=== PATIENT | male | born 1995 | race Caucasian/White ===

== ENCOUNTER 2017-08-28 22:31 | Emergency (ER) | payer OTHER ==
[~2017-08-28] VITALS: Ht 177.8 cm; Wt 110.2 kg
[~2017-08-28 22:31] MED LIST: ALLEGRA180 MG PO; CEPHALEXIN500 MG PO
--- NOTE | 2017-08-28 23:51 | ED GENERAL ADULT ---
History of Present Illness General Chief Complaint: General Adult Stated Complaint: MULTIPLE COMPLIANTS Source: patient, family Exam Limitations: no limitations Vital Signs & Intake/Output Vital Signs & Intake/Output Vital Signs Date Time Temp Pulse Resp B/P B/P Pulse O2 O2 Flow FiO2 Mean Ox Delivery Rate 08/29 0050 99 08/29 0015 100.4 08/28 2239 101.9 114 18 99 Room Air ED Intake and Output 08/29 0000 08/28 1200 Intake Total Output Total Balance Patient 243 lb Weight Weight Reported by Patient Measurement Method Allergies Coded Allergies: pistachio nut (ANAPHYLASXIS 08/28/17) Reconcile Medications Cephalexin 500 MG CAPSULE 1 TAB PO TID CELLULITIS Fexofenadine Hydrochloride (Meli) 180 MG TAB 1 TAB PO DAILY ALLERGIES ( Reported) Ibuprofen 800 MG TABLET 1 TAB PO TID PRN pain, fever Triage Note: PT FROM HOME C/O SUNDAY PT STATED COMPLAINTS OF SORE THROAT. PT STATED THAT HE WENT TO PCP AND HAD A NEGATIVE STREP AND MONO TEST. PT GIVEN AUGMENTIN WITH NO RELIEF. PTS MOTHER CONCERNED THAT PT WENT SWIMMING IN A [place], HANDLED A RAW PIG AT WORK AND POSSIBLE SAMONELLA BECAUSE "HE EATS A LOT CHICKEN" AFEBRILE AT 101.9. PT MEDICATED WITH 8 HRS PRIOR WITH 5 ADVIL 8 HRS PRIOR. STREP TEST COMPLETED HERE AND SENT TO LAB Triage Nurses Notes Reviewed? yes Onset: Gradual Duration: day(s): Timing: recent history Injury Environment: home Severity: moderate Modifying Factors: Improves With: rest. Associated Symptoms: sore throat, body aches HPI: 21 yo gentleman presents with sore throat and body aches x 4 days. He was seen by his primary care doctor, "all the blood work was negative... including mono, strep and something else." He was started on augmentin for a "bacterial infection." He notes a mild cough with phlegm "a lot of phlegm is sitting back there in my throat." He notes pain with swallowing. He notes no joint pain, rashes, diarrhea, chest pain, shortness of breath. Past History Travel History Traveled to [place] past 21 day No Medical History Any Pertinent Medical History? see below for history Neurological: NONE EENT: NONE Cardiovascular: NONE Respiratory: NONE Gastrointestinal: NONE Hepatic: NONE Renal: NONE Musculoskeletal: NONE Psychiatric: NONE Endocrine: NONE Surgical History Surgical History: none Psychosocial History What is your primary language Tongan Tobacco Use: Never used Family History Hx Contributory? No Review of Systems Review of Systems Constitutional: Reports: no symptoms. EENTM: Reports: no symptoms. Respiratory: Reports: no symptoms. Cardiovascular: Reports: no symptoms. GI: Reports: no symptoms. Genitourinary: Reports: no symptoms. Musculoskeletal: Reports: no symptoms. Skin: Reports: no symptoms. Neurological/Psychological: Reports: no symptoms. Hematologic/Endocrine: Reports: no symptoms. Immunologic/Allergic: Reports: no symptoms. All Other Systems: Reviewed and Negative Physical Exam Physical Exam General Appearance: well developed/nourished, no apparent distress Head: atraumatic, normal appearance Eyes: Bilateral: normal appearance. Ears, Nose, Throat: mild exudate on left tonsil, no uvular deviation. mild erythema on right. Neck: normal inspection, supple, full range of motion Respiratory: normal breath sounds, chest non-tender, no respiratory distress, quiet respiration, lungs clear Cardiovascular: regular rate/rhythm Gastrointestinal: normal bowel sounds, soft, non-tender, no organomegaly Back: normal inspection, normal range of motion Extremities: normal inspection, normal capillary refill, normal range of motion, no edema Neurologic/Psych: no motor/sensory deficits, awake, alert, oriented x 3 Skin: intact, normal color, warm/dry Core Measures ACS in differential dx? No CVA/TIA Diagnosis: No Sepsis Present: No Sepsis Focused Exam Completed? No Progress Differential Diagnoses I considered the following diagnoses in my evaluation of the patient: pharyngitis - viral vs bacterial vs other. Plan of Care: Orders Procedure Date/time Status THROAT CULTURE W/QUICK STREP 08/28 2244 Active Current Medications Sig/Madhavi Start time Last Medication Dose Stop Time Status Admin Dexamethasone 8 MG ONCE ONE 08/29 114 UNVr (Decadron) 08/30 115 Ibuprofen 800 MG ONCE ONE 08/29 114 UNVr (Motrin) 08/30 115 Initial ED EKG: none Departure Departure Disposition: HOME OR SELF CARE Condition: Stable Clinical Impression Primary Impression: Pharyngitis Secondary Impressions: Fever, Myalgia Referrals: Corinne QUAN,Donavan Waller (PCP/Family) Departure Forms: Customer Survey General Discharge Information Prescriptions: Current Visit Scripts Ibuprofen 1 TAB PO TID PRN pain, fever #10 TAB Critical Care Note Critical Care Note Critical Care Time: non-applicable
[2017-08-29] MEDS ORDERED: IBUPROFEN800 M1 PO (01:04)
[2017-08-29 01:14] VITALS: BP 128/68
[2017-08-29] MEDS ORDERED: MEDROL4 M2 PO (20:45)
== END 2017-08-29 01:14 ==
LOC: ERH 22:31
DX: J02.9 Acute pharyngitis, unspecified (principal); M79.1 Myalgia; R50.9 Fever, unspecified